=== PATIENT | female | born 1995 | race Caucasian/White ===

== ENCOUNTER 2018-09-10 02:41 | Emergency (ER) | payer SELFPAY ==
--- NOTE | 2018-09-10 03:10 | C.PDOC ---
History Of Present Illness 23 year old female with 10 days or so of abdominal pain and 2 weeks of being unable to have a full bowel movement. Patient states she has difficulty having bowel movements, last one was today but only a small amount. She also reports some painful urination and is concerned she might be since she has not had her period since June. Patient states the pain worsens with eating and has not taken anything for the pain. Has Hx of c section but no other medical problems. Denies fever or SOB. Time Seen by Provider: 09/10/18 02:54 Chief Complaint (Nursing): Abdominal Pain History Per: Patient History/Exam Limitations: no limitations Onset/Duration Of Symptoms: Days Current Symptoms Are (Timing): Still Present Location Of Pain/Discomfort: Diffuse Radiation Of Pain To:: None Quality Of Discomfort: Unable To Describe Associated Symptoms: Constipation, Other (Painful urination) Exacerbating Factors: Food Alleviating Factors: None Recent travel outside of the [place]: No Abnormal Vaginal Bleeding: No Past Medical History Reviewed: Historical Data, Nursing Documentation, Vital Signs Vital Signs: Last Vital Signs Temp 98.4 F 09/10/18 02:52 Pulse 97 H 09/10/18 02:52 Resp 16 09/10/18 02:52 BP 129/77 09/10/18 02:52 Pulse Ox 97 09/10/18 02:52 Family History: States: Unknown Family Hx - Social History Hx Alcohol Use: No Hx Substance Use: No Review Of Systems Constitutional: Negative for: Fever, Chills Eyes: Negative for: Pain, Redness ENT: Negative for: Mouth Swelling Cardiovascular: Negative for: Chest Pain, Palpitations Respiratory: Negative for: Cough, Shortness of Breath Gastrointestinal: Positive for: Abdominal Pain, Constipation. Negative for: Nausea, Vomiting, Diarrhea Genitourinary: Positive for: Dysuria. Negative for: Hematuria Musculoskeletal: Negative for: Back Pain Skin: Negative for: Rash Neurological: Negative for: Weakness, Numbness, Dizziness Physical Exam - Physical Exam Appears: Non-toxic, Other (Well hydrated, no vomiting.) Skin: Normal Color, Warm, No Rash Head: Atraumatic, Normacephalic Eye(s): bilateral: Normal Inspection, PERRL, EOMI Nose: Normal Oral Mucosa: Moist Neck: Normal ROM, Supple Chest: Symmetrical Respiratory: No Accessory Muscle Use, Other (Normal inspiratory effort) Gastrointestinal/Abdominal: Soft, Tenderness (Mildly diffuse), No Guarding, No Rebound Back: No CVA Tenderness Neurological/Psych: Oriented x3, Normal Speech, Normal Cranial Nerves (Grossly intact) Gait: Steady ED Course And Treatment O2 Sat by Pulse Oximetry: 97 (room air) Pulse Ox Interpretation: Normal Medical Decision Making Medical Decision Making: X-ray shows large amount of stool in colon, constipation meds given and referred to clinic for further evaluation. Disposition Counseled Patient/Family Regarding: Studies Performed, Diagnosis, Need For Followup, Rx Given - Disposition Referrals: [facility] [Outside] Disposition: HOME/ ROUTINE Disposition Time: 04:24 Condition: STABLE Prescriptions: Docusate Sodium [Colace] 100 mg PO DAILY #30 capsule RX: Magnesium Citrate [Citrate of Mag] 300 ml PO ONCE #1 bottle Instructions: Constipation, Adult (DC) Forms: [facility] (Dive[place]), General Discharge Instructions - Clinical Impression Clinical Impression: Constipation - PA / HOME HEALTH CARE CASE MANAGER / Resident Statement MD/DO has reviewed & agrees with the documentation as recorded. - Scribe Statement The provider has reviewed the documentation as recorded by the Scribdinesh Durham All medical record entries made by the Rosaleeibdinehs were at my direction and personally dictated by me. I have reviewed the chart and agree that the record accurately reflects my personal performance of the history, physical exam, medical decision making, and the department course for this patient. I have also personally directed, reviewed, and agree with the discharge instructions and disposition.
[2018-09-10 03:19] LABS: HCG,QUALITATIVE URINE NEGATIVE (NEGATIVE)
[2018-09-10 03:27] LABS: SQUAMOUS EPITHIAL 3 /hpf (0-5); URINE AMORPHOUS SEDIMENT MODERATE /ul (<OCC); URINE BILIRUBIN NEGATIVE (NEGATIVE); URINE BLOOD NEGATIVE (NEGATIVE); URINE CLARITY Turbid (Clear); URINE COLOR Yellow (YELLOW); URINE GLUCOSE (UA) NORMAL (Normal); URINE LEUKOCYTE ESTERASE TRACE Leu/uL (Negative); URINE PROTEIN NEGATIVE (NEGATIVE); URINE UROBILINOGEN NORMAL mg/dL (0.2-1.0)
[2018-09-10 04:37] VITALS: BP 110/67; PULSE 78; RESP 18; TEMP 98.7
[2018-09-10 06:40] VITALS: O2SAT 97
--- NOTE | 2018-09-10 08:13 | RAD ---
Date of service: 09/10/2018 HISTORY: constipation COMPARISON: None available. FINDINGS: BOWEL: Moderate diffuse constipation. No definite free air. Nonobstructive bowel gas pattern. BONES: No acute osseous abnormality is detected. OTHER FINDINGS: None. IMPRESSION: Moderate diffuse constipation.
== END 2018-09-10 04:37 | disposition home or self-care (01) ==
LOC: C.ER 02:41
DX: K59.00 Constipation, unspecified (principal)